=== PATIENT | male | born 1965 ===

== ENCOUNTER 2017-08-02 00:23 | Inpatient (IN) | payer OTHER ==
[2017-08-01 14:50] LABS: INR 0.89
[2017-08-02] VITALS (19 sets, daily range): BP systolic 109–145; BP diastolic 72–100
[~2017-08-02] VITALS: Ht 188 cm; Wt 124.0 kg
[~2017-08-02 00:23] MED LIST: VARE1TAB3 PO
[2017-08-02] MEDS ORDERED: LIDOCAINE MPF 1% 5 ML VIAL ONE (06:57)
[2017-08-02] MEDS ORDERED: PROPOFOL EMUL(*) 10MG/ML 20 ML 40 ML ONE (06:57)
[2017-08-02] MEDS ORDERED: MORPHINE PF 5 MG/10 ML AMP ONE (06:57)
[2017-08-02] MEDS ORDERED: ONDANSETRON 4 MG/2 ML VIAL ONE (06:57)
[2017-08-02] MEDS ORDERED: DEXAMETHASONE SOD PHOS 10MG/ML ONE (06:57)
[2017-08-02] MEDS ORDERED: NORMOSOL R SOLN(*) 1000 ML BAG 1,000 ML IV PRN ×2 (09:00→09:40)
[2017-08-02] MEDS ORDERED: TRANEXAMIC AC 1000 MG/10ML SDV 1,000 MG in DEXTROSE 5% 50 ML BAG 50 ML IV ONE (09:00)
[2017-08-02] MEDS ORDERED: FAMOTIDINE 20 MG TAB PO ONE (09:00)
[2017-08-02] MEDS ORDERED: LIDOCAINE/SOD BICARB 8.4% SYR ID ONE (09:00)
[2017-08-02] MEDS ORDERED: ceFAZolin(*) 2GM/D5W 50ML 50 ML IVPB ONE (09:00)
[2017-08-02] MEDS ORDERED: MIDAZOLAM 2 MG/2 ML VIAL IVP ONE (09:00)
[2017-08-02] MEDS ORDERED: cloNIDine EPIDUR INJ 100MCG/ML 40 MCG, ROPIVACAINE 0.5% 20 ML VIAL 25 ML, EPINEPHrine H... INJ ONE (09:00)
[2017-08-02] MEDS ORDERED: NALOXONE HCL 0.4 MG/ML VIAL IVP PRN ×2 (09:35→09:40)
[2017-08-02] MEDS ORDERED: MAGNESIUM HYDROXIDE* 30ML UDCP PO PRN (09:40)
[2017-08-02] MEDS ORDERED: PROMETHAZINE 25 MG/ML 1 ML AMP IVP PRN (09:40)
[2017-08-02] MEDS ORDERED: ZOLPIDEM TARTRATE 5 MG TAB PO PRN (09:40)
[2017-08-02] MEDS ORDERED: MORPHINE SULFATE 30 MG PCA IV PRN (09:40)
[2017-08-02] MEDS ORDERED: FLUSH 10 ML SYR IVP PRN (09:40)
[2017-08-02] MEDS ORDERED: BISACODYL 10 MG SUPP PR PRN (09:40)
[2017-08-02] MEDS ORDERED: ONDANSETRON 4 MG/2 ML VIAL IVP PRN ×2 (09:40)
[2017-08-02] MEDS: diphenhydrAMINE 25 MG CAP PO PRN ×2 (12:26→18:34)
[2017-08-02] MEDS: ACETAMINOPHEN 500 MG TAB PO SCH ×2 (12:26→18:34)
--- NOTE | 2017-08-02 13:54 | Hospitalist Consultation ---
History of Present Illness Requesting Physician Dr. Garcia Reason for Consult Smoking cessation History of Present Illness This patient was admitted for knee replacement surgery. It is reported that the surgery went well and was without complication. History Problems: (1) Smoker Home Meds Reported Medications Varenicline Tartrate (CHANTIX) 1 Each Tab.ds.pk, 1 EACH PO QDAY 07/29/17 Allergies: Coded Allergies: No Known Drug Allergies (Unverified , 07/29/17) Hx Smoking: Yes (MANY YEARS- 1 PPD) Smoking Status: Former Smoker When Quit Tobacco?: 07/19/17 Caffeine Intake: Coffee Caffeine/Cups Per Day: 2-3 CUPS PER DAY Hx Alcohol Use: Yes Hx Substance Use Disorder: No Social Drug Use: Never History of IV Drug Use: No Review of Systems All Systems Reviewed/Normal: Yes Exam Vital Signs Vital Signs Date Time Temp Pulse Resp B/P (MAP) Pulse Ox O2 Delivery O2 Flow Rate FiO2 08/02/17 12:15 68 127/77 (94) 96 Nasal Cannula 1.0 08/02/17 11:02 98.2 20 Neuro: No Gross deficits Cardiovascular: Regular Rate and Rhythm Respiratory: Clear to Auscultation Extremities: No Edema Assessment and Plan Problems: (1) S/P knee replacement Assessment & Plan: He is on aspirin prophylaxis. (2) NICOTINE DEPENDENCE, CIGARETTES, UNCOMPLICATED Assessment & Plan: He has been continued on Chantix. Venous Thromboembolism Antithrombotics Is Pt On Any Antithrombotics?: No Exam Sepsis Risk: No Definite Risk DHAVAL WAGNER DO Aug 02, 2017 13:54
--- NOTE | 2017-08-02 15:27 | RADIOLOGY IMAGING REPORT ---
FACILITY: [facility] PATIENT NAME: Darin Easley : 1965 MR: [id number] V: [id number] EXAM DATE: ORDERING PHYSICIAN: ERICH SAEED TECHNOLOGIST: Location: [facility] Patient: Darin Easley : 1965 Visit/Account:[id number] Date of Sevice: 08/02/2017 Examination: KNEE LIMITED LEFT Comparison: None. History: Left knee replacement. Findings: Normal postoperative alignment of left total knee arthroplasty. No fracture. Expected posto perative change in the soft tissue. IMPRESSION: Unremarkable postoperative appearance of the left total knee arthroplasty. Report Dictated By: Salomón Rush MD at 08/02/2017 3:23 PM Report E-Signed By: Salomón Rush MD at 08/02/2017 3:24 PM WSN:[id number]
[2017-08-02] MEDS: ceFAZolin(*) 2GM/D5W 50ML 50 ML IVPB SCH (16:23)
[2017-08-02] MEDS: oxyCODONE HCL 5 MG CAP PO PRN ×2 (16:56→21:15)
[2017-08-02] MEDS: MORPHINE 4 MG/ML SYR IVP PRN (22:44)
[2017-08-03] MEDS: ceFAZolin(*) 2GM/D5W 50ML 50 ML IVPB SCH ×2 (00:01→07:21)
[2017-08-03] MEDS: ACETAMINOPHEN 500 MG TAB PO SCH ×5 (00:05→23:49)
[2017-08-03] MEDS: diphenhydrAMINE 25 MG CAP PO PRN ×3 (01:10→20:28)
[2017-08-03] MEDS: MORPHINE 4 MG/ML SYR IVP PRN ×6 (01:10→16:36)
[2017-08-03] MEDS: oxyCODONE HCL 5 MG CAP PO PRN ×6 (01:49→23:50)
[2017-08-03 04:32] VITALS: BP 108/66
--- NOTE | 2017-08-03 06:33 | Hospitalist Progress Note ---
Subjective Progress Notes Subjective This patient was admitted for knee replacement. He had no acute events overnight. Patient Complains of: Cardiovascular: No: Chest Pain Respiratory: No: Shortness of Breath Physical Exam Vital Signs Date Time Temp Pulse Resp B/P (MAP) Pulse Ox O2 Delivery O2 Flow Rate FiO2 08/03/17 04:57 91 Nasal Cannula 1.0 08/03/17 04:32 97.8 63 16 108/66 (80) Cardiovascular: Regular Rate and Rhythm Respiratory: Clear to Auscultation Result Diagram: 08/03/17 0543 Assessment and Plan Problems: (1) S/P knee replacement Assessment & Plan: He is on aspirin prophylaxis. (2) NICOTINE DEPENDENCE, CIGARETTES, UNCOMPLICATED Assessment & Plan: He has been continued on Chantix. Exam Sepsis Risk: No Definite Risk DHAVAL WAGNER DO Aug 03, 2017 06:33
[2017-08-03 07:17] VITALS: BP 138/82
[2017-08-03] MEDS: VARENICLINE 1 MG TAB PO SCH (09:04)
[2017-08-03] MEDS: ASPIRIN 325 MG ENTERIC COATED PO SCH (09:04)
[2017-08-03 09:24] VITALS: Ht 188 cm; Wt 124.0 kg
[2017-08-03 11:19] VITALS: BP 155/99
[2017-08-03 15:05] VITALS: BP 119/91
--- NOTE | 2017-08-03 15:39 | OPERATIVE REPORT 1 ---
EVENT DATE: August 02, 2017 SURGEON: Price Garcia MD ANESTHESIOLOGIST: Rey Vaughn MD ANESTHESIA: Spinal, followed by general. DESK MAKER: KAVYA Luna PREOPERATIVE DIAGNOSIS Left knee degenerative joint disease. POSTOPERATIVE DIAGNOSIS Left knee degenerative joint disease. PROCEDURE PERFORMED Left total knee. IMPLANTS MicroPort medial pivot-shift CS system with a 5 femur, a 6 tibia, a 12 mm CS insert, 35 asymmetric patella, femur cut 6 degrees of valgus, 10 mm. We utilized two packages of [employer] [place] Blue Cement. We utilized 50 mL of our standard Toradol and ropivacaine cocktail and a ZipLine wound suture closure system. SPECIMENS None. COMPLICATIONS None. BLOOD LOSS Estimated to be 200 mL. TOURNIQUET TIME A tourniquet was not used during the procedure. DESCRIPTION OF OPERATION The patient was brought to the OR. After receiving appropriate preoperative antibiotic, Dr. Vaughn performed spinal, followed by general anesthesia. A left thigh tourniquet was placed, followed by prepping and draping the left lower extremity in the usual sterile fashion. I made a midline incision, followed by a medial parapatellar arthrotomy. We noted grade III and IV changes in the medial compartment and patellofemoral compartment. There was minimal damage in the lateral compartment. I released the ACL and PCL. There, we dissected subperiosteally by Bovie, achieving hemostasis as we went along the medial tibial plateau to the level of the semimembranosus insert. We excised a fairly significant fat pad and scar tissue from the previous arthroscopies. I released the patella and everted this. We brought the knee up in hyperflexion and released the ACL and PCL subperiosteally by Bovie. We placed appropriate retractors and removed the remaining articular cartilage from the distal femoral condyles with a sagittal saw. We then broached the distal femoral canal with a step-cut drill. We placed our intramural femoral guide and set our cutting block up at 6 degrees valgus, 10 mm. We pinned this into place. Again, we protected the soft tissues with the appropriate retractors and made our distal cut. We then placed our 3-degree external rotation guide, setting this up and referencing off the anterior flange of the femur, posterior condyles , and epicondyles, and then we drove the 3-degree external rotation holes after sizing the femoral to a #5. We then placed Z retractors to protect the soft tissue, the four-in-one cutting block size 5, and made our four cuts. We then brought the tibia anterior to the femur with the appropriate retractors and broached the tibial canal with a step-cut drill. We then placed our intramedullary tibial guide. We then referenced 10 mm off the least involved lateral tibial plateau and referenced for rotation. We pinned our block into place for a 10 mm cut. We placed appropriate retractors and made our tibial cut. We noted fairly significant sclerosis in the medial tibial plateau. There were also osteophytes noted here, and these were removed by rongeur. The tibia was sized to a #6. I removed the stumps of the ACL and PCL and medial and lateral menisci by Yovany. I removed the posterior osteophytes by a curved osteotome and elevated the posterior capsule with a Guerrero elevator. I then placed our trial #6 tibial baseplate, referencing from previous rotation. We pinned this in place. We initially started with a 10. We removed up to a 12 mm insert, and again, we placed our trial #5 femur. At this point, we noted we had full extension, flexion of 140 degrees, the patella tracked well, and stability was noted through varus and valgus stress. At 90 degrees, we had a satisfactory drawer. We brought the knee into flexion, drilled the peg holes for the femur, and cut for a trochlear chip and placed this. We then brought the knee up in full extension and noted the patella to be 28 mm in depth. We cut this down to 8 mm, and this accepted a 35 x 8 peg hole guide. We positioned this inferiorly and medially, drilled the peg holes, and placed our patella trial. The patella tracked well. Again, we had the aforementioned range of motion stability. The patellar, femoral, and tibial inserts were removed. Appropriate retractors were placed. We set up our tower for a tibial keel. We cut and punched, and we removed the trials. We then placed a bone plug in the distal femur. While we mixed two packages of [employer] [place] Blue Cement, we copiously irrigated the bone and soft tissue with pulse lavage. We then placed 10 mL of our cocktail in the posterior capsule. We then placed the knee in the appropriate position, irrigated once again and dried the bone with laps. Then, starting with the tibia, we implanted this. Excess cement was removed, and we placed our 12 mm CS insert, and then our #5 femur. Excess cement was removed. The knee was bent in full extension with axial compression while we cemented the patella. Excess cement was removed. We placed axial compression with the posterior drawer. We waited while the cement hardened at 15-1/2 minutes. We copiously irrigated by pulse lavage once again. Again, we noted similar tracking stability. We closed the arthrotomy with #2 Vicryl in a [id number] suture fashion, followed by 2-0 Vicryl for the subcutaneous tissues. We cleaned the wounds. At 45 degrees, we applied our ZipLine wound suture closure. We then placed a compressive dressing. The patient was extubated and taken to recovery in stable condition. Hospitalist team will be consulted for medical management and anticoagulation, PT and OT for rehab. ANA
[2017-08-03] MEDS ORDERED: MORPHINE 2 MG/ML SYR IVP PRN (19:25)
[2017-08-03 20:14] VITALS: BP 143/77
[2017-08-03] MEDS ORDERED: ZOLPIDEM TARTRATE 10 MG TAB PO PRN (21:00)
[2017-08-03 23:51] VITALS: BP 140/86
[2017-08-04 03:50] VITALS: BP 141/99
[2017-08-04] MEDS: oxyCODONE HCL 5 MG CAP PO PRN ×2 (03:58→08:31)
[2017-08-04] MEDS: ACETAMINOPHEN 500 MG TAB PO SCH (05:35)
[2017-08-04 07:18] VITALS: BP 168/95
[2017-08-04] MEDS ORDERED: ASPI-764 PO (08:02)
[2017-08-04] MEDS ORDERED: OXYC-869 PO (08:28)
[2017-08-04] MEDS: ASPIRIN 325 MG ENTERIC COATED PO SCH (08:30)
[2017-08-04] MEDS: VARENICLINE 1 MG TAB PO SCH (08:30)
== END 2017-08-04 09:40 | disposition home or self-care (01) | DRG 470 ==
LOC: OR 00:23 → MED 10:45
PROVIDERS: ADMIT Orthopaedic Surgery; ATTEND Orthopaedic Surgery
PROC: 0SRD0J9 Replacement of Left Knee Joint with Synthetic Substitute, Cemented, Open Approach (ICD-10-PCS; principal; 2017-08-02 07:09)
DX: M17.12 Unilateral primary osteoarthritis, left knee (principal); M21.162 Varus deformity, not elsewhere classified, left knee; F17.210 Nicotine dependence, cigarettes, uncomplicated; E66.9 Obesity, unspecified; Z68.35 Body mass index [BMI] 35.0-35.9, adult
CPT/HCPCS: 36415; 85014; 85018; 85610; 86850; 86900; 86901; 97161; C1713; C1776; J0171; J0690; J0735; J1100; J1885; J2001; J2250; J2270; J2405; J2704; J2795; J3490; J7050; J7060; Q0163